=== PATIENT | male | born 1945 | race Caucasian/White ===

== ENCOUNTER 2017-05-09 11:00 | Emergency (ER) | payer MEDICARE, OTHER ==
[~2017-05-09] VITALS: Ht 180.3 cm; Wt 127.0 kg
[~2017-05-09 11:00] MED LIST: AMARYL2 MG PO; ASPIRIN EC81 MG PO; BENICAR20 MG PO; CARVEDILOL3.125 MG PO; COUMADIN2.5 MG PO; COZAAR25 MG PO; DEMADEX10 MG PO; DILTIAZEM ER240 MG PO; HYDRALAZINE HCL50 MG PO; HYDROCHLOROTHIA25 MG PO; LOSARTAN POTASS50 MG PO; METOLAZONE2.5 MG PO; POTASSIUM CHLO20 ME1 PO; SIMVASTATIN20 MG PO; TORSEMIDE20 MG PO; VITAMIN D32000 UNI1 PO; WARFARIN SODIU2.5 MG PO; ZYLOPRIM100 MG PO
--- NOTE | 2017-05-09 13:53 | NUR ---
TATIANA CORBIN CONTACTED ME TO ASSIST WITH PT AND SON. PT WAS TO BE LIFEFLIGHTED AND SON WAS STRUGGLING WITH HIS DAD'S CONDITION. HE SHARED WITH ME THAT THIS HAS BEEN A 19 YR MORALES WITH HIS DAD'S HEALTH. HIS LIFE LONG MORALES WITH ALCOHOLISM, TOBACCO AND WRECKLESS LIFE STYLE HAS LED TO HIS PRESENT CONDITION. CHANDANA HAS RECENTLY MOVED IN WITH PT TO HELP WITH HIS CARE, WHILE AT THE SAME TIME FEELING THOUGH HE IS LOSING HIS OWN FAMILY. LET CHANDANA VENT, PRAYED WITH HIM AND GOT WORD THAT L.FLIGHT WAS LANDING. GAVE SON LIFEFLIGHT PACK LIST, HAD PRAYER WITH HIM AND STAYED WITH HIM UNTIL L.FLIGHT LEFT. GOD BLESS HIM
--- NOTE | 2017-05-11 17:14 | EKG ---
[facility] [address] [place] [address] Signed Atrial fibrillation with frequent premature ventricular complexes Nonspecific intraventricular conduction delay Prolonged QT Abnormal ECG When compared with ECG of 31-AUG-2016 11:36, Vent. rate has increased BY 32 BPM QT has lengthened Confirmed by SANDOVAL CRESPO MD ([id number] on 05/11/2017 5:14:51 PM Electronically Signed By: SANDOVAL CRESPO MD 05/11/17 1714 PATIENT NAME: HUGO MARTINEZ AMIRA Electrocardiogram DATE OF : 45 PHYSICIAN: SANDOVAL CRESPO MD REPORT #: [id number] REPORT IS CONFIDENTIAL AND NOT TO BE RELEASED WITHOUT AUTHORIZATION
== END 2017-05-09 14:03 | disposition short-term general hospital (02) ==
LOC: ED 11:00
DX: I61.9 Nontraumatic intracerebral hemorrhage, unspecified (principal); I48.91 Unspecified atrial fibrillation; J44.9 Chronic obstructive pulmonary disease, unspecified; I13.0 Hypertensive heart and chronic kidney disease with heart failure and stage 1 through stage 4 chronic kidney disease, or unspecified chronic kidney disease; E11.22 Type 2 diabetes mellitus with diabetic chronic kidney disease; N18.9 Chronic kidney disease, unspecified; I50.9 Heart failure, unspecified; E66.01 Morbid (severe) obesity due to excess calories; Z79.01 Long term (current) use of anticoagulants; Z87.891 Personal history of nicotine dependence; Z88.2 Allergy status to sulfonamides; Z79.899 Other long term (current) drug therapy
CPT/HCPCS: 70450; 71010; 80053; 82140; 83605; 85025; 85610; 85730; 86850; 86900; 86901; 93005; 93010; 96374; 99285; J3430; J7030